=== PATIENT | female | born 1975 | race Caucasian/White ===

== ENCOUNTER 2018-05-10 17:32 | Emergency (ER) | payer MEDICAID ==
[~2018-05-10] VITALS: Ht 154.9 cm; Wt 64.5 kg
[2018-05-10 17:36] VITALS: BP 129/92; PULSE 87; RESP 18; Ht 154.9 cm; Wt 64.5 kg
[2018-05-10] MEDS ORDERED: KETOROLAC 30 MG INJ IM STA (21:34)
[2018-05-10] MEDS ORDERED: IBUP-1542 PO (21:36)
[2018-05-10] MEDS ORDERED: [UNRECOGNIZED DRUG - CODE] PO (21:37)
--- NOTE | 2018-05-10 21:39 | ERD ---
ER Documentation Chief Complaint Chief Complaint pt bib self with c/o right flank pain and menstral cramps HPI Patient is a 42-year-old female with no past medical history presents to the ER for concerns of pelvic pain radiating to her back and down her bilateral legs times 2 days. She states her pain has become worse today. Patient is currently on her menstrual period. She states her menstrual periods started 5 days ago. She denies any blood clot passage or heavy bleeding. She states she uses 1-2 pads per day. Patient denies any fevers or chills. Patient denies any urinary symptoms. Patient states she has been taking ibuprofen twice a day with minimal alleviation of symptoms. Patient denies any flank pain, abdominal pain, nausea, vomiting or diarrhea. Patient denies any chest pain or shortness of breath. P atient denies any lightheadedness or dizziness. Patient denies any falls or trauma. ROS All systems reviewed and are negative except as per history of present illness. Medications Home Meds Active Scripts Acetaminophn/Pyril Mal/Caffein (MIDOL COMPLETE CAPLET) 1 Each Tablet, 1 EACH PO as directed, #1 BOX Prov:FRANCIA BAÑUELOS PA-C 05/10/18 Ibuprofen* (Motrin*) 600 Mg Tab, 600 MG PO Q6, #30 TAB Prov:FRANCIA BAÑUELOS PA-C 05/10/18 Discontinued Scripts Naproxen Sodium (MIDOL) 220 Mg Tablet, 220 MG PO as directed PRN for period cramps, #1 BOX Prov:FRANCIA BAÑUELOS PA-C 05/10/18 Allergies Allergies: Coded Allergies: No Known Drug Allergy (Verified Allergy, Unknown, 05/10/18) PMhx/Soc Medical and Surgical Hx: pt denies Medical Hx, pt denies Surgical Hx Hx Alcohol Use: No Hx Substance Use: No Hx Tobacco Use: No Smoking Status: Never smoker FmHx Family History: No diabetes Physical Exam Vitals Vital Signs Date Temp Pulse Resp B/P (MAP) Pulse Ox O2 O2 Flow FiO2 Time Delivery Rate 05/10/18 98.0 87 18 129/92 100 17:36 (104) Physical Exam GENERAL: Well-developed, well-nourished female. Appears in no acute distress. HEAD: Normocephalic, atraumatic. EYES: Pupils are equally reactive bilaterally. EOMs grossly intact. No conjunctival erythema. ENT: Moist mucous membranes. No uvula deviation. No kissing tonsils. NECK: Supple. No meningismus. Normal range of motion of the neck. LUNG: Clear to auscultation bilaterally. No rhonchi, wheezing, rales or coarse breath sounds. HEART: Regular rate and rhythm. No murmurs, rubs or gallops. ABDOMEN: Soft, and nondistended. Tender to palpation over the suprapubic region. Positive bowel sounds in all four quadrants. No rebound tenderness, no guarding. (-) McBurney's point tenderness. No CVA tenderness. EXTREMITIES: Equal pulses bilaterally. No peripheral clubbing, cyanosis or edema. No unilateral leg swelling. NEUROLOGIC: Alert and oriented. Moving all four extremities without any diffi culty. Normal speech. Steady gait. SKIN: Normal color. Warm and dry. No rashes or lesions. Results 24 hrs Laboratory Tests Test 05/10/18 21:30 05/10/18 21:33 Bedside Urine pH (LAB) 6.0 Bedside Urine Protein (LAB) Negative Bedside Urine Glucose (UA) Negative Bedside Urine Ketones (LAB) Negative Bedside Urine Blood 3+ Bedside Urine Nitrite (LAB) Negative Bedside Urine Leukocyte Esterase (L Negative POC Beta HCG, Qualitative NEGATIVE Current Medications Medications Dose Sig/Payton Start Time Status Last (Trade) Ordered Route PRN Stop Time Admin Dose Reason Admin Ketorolac 30 mg ONCE STAT 05/10/18 DC Tromethamine IM 21:34 (Toradol) 05/10/18 21:36 Procedures/MDM MEDICAL DECISION MAKING: This is a 42-year-old female with no past medical history presents the ER for concerns of pelvic pain radiating into her bilateral lower back and down her legs times 2 days.. Patient states this is her fifth day of her menstrual period. She denies any blood clot passage. She reports using 1-2 pads per day. She denies any lightheadedness or dizziness. Vital signs were reviewed. Patient was afebrile. Patient was hemodynamically stable. Urine test was negative. UA was negative for acute infection. Patient was given Toradol here for her pain. Patient symptoms are likely related to menstrual cramps. Low suspicion for ectopic , ovarian torsion, PID, tubo-ovarian abscess, appendicitis, diverticulitis, bowel obstruction, perirectal abscess, nephrolithiasis. Patient was nontoxic, [id number] prior to discharge. PRESCRIPTIONS: Midol, ibuprofen DISCHARGE: At this time, patient is stable for discharge and outpatient management. I have instructed the patient to follow-up with his/her primary care physician in 1-2 days. I have discussed with the patient the possibility of needing to see a specialist for further workup and diagnostic studies if the pain persists. I have instructed the patient to promptly return to the ER at any time for any new or worsening symptoms including increased pain, nausea, vomiting, vaginal bleeding, weakness or fever. The patient and/or family expressed understanding of and agreement with this plan. All questions were answered. Home care instructions were provided. Disclaimer: Inadvertent spelling and grammatical errors are likely due to EHR/dictation software use and do not reflect on the overall quality of patient care. Also, please note that the electronic time recorded on this note does not necessarily reflect the actual time of the patient encounter. Departure Diagnosis: Primary Impression: Menstrual cramps Additional Impression: Lower back pain Chronicity: unspecified Back pain laterality: unspecified Sciatica presence: unspecified whether sciatica present Qualified Codes: M54.5 - Low back pain Condition: Fair Patient Instructions: Pelvic Pain, Unknown Cause Referrals: [facility] YOU HAVE RECEIVED A MEDICAL SCREENING EXAM AND THE RESULTS INDICATE THAT YOU DO NOT HAVE A CONDITION THAT REQUIRES URGENT TREATMENT IN THE EMERGENCY DEPARTMENT. FURTHER EVALUATION AND TREATMENT OF YOUR CONDITION CAN WAIT UNTIL YOU ARE SEEN IN YOUR DOCTORS OFFICE WITHIN THE NEXT 1-2 DAYS. IT IS YOUR RESPONSIBILITY TO MAKE AN APPOINTMENT FOR FOLOW-UP CARE. IF YOU HAVE A PRIMARY DOCTOR --you should call your primary doctor and schedule an appointment IF YOU DO NOT HAVE A PRIMARY DOCTOR YOU CAN CALL OUR PHYSICIAN REFERRAL HOTLINE AT IF YOU CAN NOT AFFORD TO SEE A PHYSICIAN YOU CAN CHOSE FROM THE FOLLOWING [facility] [address] [facility] [address] [facility] [address] [facility] [address] [facility] [address] [facility]. [facility] [address] [facility] YOU HAVE RECEIVED A MEDICAL SCREENING EXAM AND THE RESULTS INDICATE THAT YOU DO NOT HAVE A CONDITION THAT REQUIRES URGENT TREATMENT IN THE EMERGENCY DEPARTMENT. FURTHER EVALUATION AND TREATMENT OF YOUR CONDITION CAN WAIT UNTIL YOU ARE SEEN IN YOUR DOCTORS OFFICE WITHIN THE NEXT 1-2 DAYS. IT IS YOUR RESPONSIBILITY TO MAKE AN APPOINTMENT FOR FOLOW-UP CARE. IF YOU HAVE A PRIMARY DOCTOR --you should call your primary doctor and schedule and appointment IF YOU DO NOT HAVE A PRIMARY DOCTOR YOU CAN CALL OUR PHYSICIAN REFERRAL HOTLINE AT . IF YOU CAN NOT AFFORD TO SEE A PHYSICIAN YOU CAN CHOSE FROM THE FOLLOWING [facility]: [facility] [address] [place] [address] [facility] [address] [place] [address] [facility] [address] [place] [address] [employer] [address] [facility] [address] [place] [address] OFFICE FAX [facility] [address] [place], [place] [id number] [facility] [address] [place] [address] [address] [facility] [facility] [address] [facility], [address] [address] [address] [place] [address] [facility] [address] [place], [place] [address] [address] [facility] [address] - [address] [facility] [address] [address] WOMACK, KRISTA [address] [facility] [address], [place] [address] [address] RICO, FARID [address] [place] [address] Additional Instructions: Llame al doctor MAANA y quinn geovani SHA PARA DENTRO DE 1-2 CAMACHO.Dgale a la secretaria que nosotros le instruimos hacer esta sha.Avise o llame si umana condicin se empeora antes de la sha. Regresa aqui si peor o no mejor. FRANCIA BAÑUELOS PA-C May 10, 2018 21:39
[2018-05-10] MEDS ORDERED: [UNRECOGNIZED DRUG - CODE] PO (21:40)
== END 2018-05-10 21:47 | disposition home or self-care (01) ==
LOC: FTE 17:32
DX: N94.6 Dysmenorrhea, unspecified (principal); M54.5 Low back pain
CPT/HCPCS: 81003; 81025; 96372; J1885; Z7502